=== PATIENT | female | born 1965 | race Caucasian/White ===

== ENCOUNTER → 2019-11-08 | Outpatient (CLI) | payer BC ==
[~2019-11-08] MED LIST: AGM875T PO; ALTABAX; BUTA1CAP39 PO; CEFD300C3 PO; CTLP20T PO; CTRZ10T; D-AMPHETAMINE SALT; DCS100C PO; ESTR1TAB24 PO; FLUT16SP22 NSEACH; IBP800T PO; IBUP1TAB9 PO; LVT.1T PO; MPR22T; NAPR-247 PO; ONDA8TAB13 PO; ONDN4T PO; PANT20TA2 PO; SUMA25TA3 PO; TRAM-21 PO
== END ==
LOC: CARD 08:55
PROVIDERS: ATTEND Internal Medicine Cardiovascular Disease
DX: I07.1 Rheumatic tricuspid insufficiency (principal); R00.2 Palpitations
CPT/HCPCS: 93306

== ENCOUNTER → 2022-04-14 | Outpatient (CLI) | payer BC ==
[~2022-04-14] MED LIST changes: +CATHETER FLUSH 10 ML SYR IV PRN; +HOLD METFORMIN - RECEIVED CONTRAST 20 ML VIAL IV SCH; +IOHEXOL 350 MG/ML 100 ML (OMNIPAQUE 350) VIAL IV ONE; +NS 100 ML (IVPB) BAG IV ONE
[2022-04-14 11:45] LABS: BASOPHILS # (AUTO) 0.1 10^3/uL (0.0-0.1); BASOPHILS % (AUTO) 0 % (0-10); EOSINOPHILS % (AUTO) 0 % (0-10); HEMATOCRIT 36 % (35-52); HEMOGLOBIN 11.9 g/dL (11.5-16.0); LYMPHOCYTES # (AUTO) 2.4 10^3/uL (1.0-4.0); LYMPHOCYTES % (AUTO) 15 % (12-44); MEAN CORPUSCULAR HEMOGLOBIN 29 pg (25-34); MEAN CORPUSCULAR HGB CONC 33 g/dL (32-36); MEAN CORPUSCULAR VOLUME 89 fL (80-99); MEAN PLATELET VOLUME 9.6 fL (9.0-12.2); MONOCYTES # (AUTO) 1.3 10^3/uL (0.0-1.0); MONOCYTES % (AUTO) 8 % (0-12); NEUTROPHILS # (AUTO) 12.3 10^3/uL (1.8-7.8); NEUTROPHILS % (AUTO) 77 % (42-75); PLATELET COUNT 261 10^3/uL (130-400); WHITE BLOOD COUNT 16.1 10^3/uL (4.3-11.0)
[2022-04-14 11:56] LABS: ALBUMIN 3.8 GM/DL (3.2-4.5); POTASSIUM 4.1 MMOL/L (3.6-5.0)
[2022-04-14 11:57] LABS: CALCIUM 9.3 MG/DL (8.5-10.1)
[2022-04-14 12:00] LABS: BILIRUBIN,TOTAL 0.4 MG/DL (0.1-1.0)
[2022-04-14 12:02] LABS: CREATININE SERUM 0.74 MG/DL (0.60-1.30)
--- NOTE | 2022-04-14 12:46 | Diagnostic Imaging Report ---
PROCEDURE: CT abdomen and pelvis with contrast. TECHNIQUE: Multiple contiguous axial images were obtained through the abdomen and pelvis after administration of intravenous contrast. Auto Exposure Controls were utilized during the CT exam to meet ALARA standards for radiation dose reduction. All CT scans use one or more of the following dose optimizing techniques: automated exposure control, MA and/or KvP adjustment based on patient size and exam type or iterative reconstruction. INDICATION: Left lower quadrant pain and fever. COMPARISON: No prior studies are available for comparison. FINDINGS: Lung bases are clear. Liver does show some generalized low density, consistent with hepatic steatosis. There is a simple-appearing cyst in the right lobe of the liver measuring 2.3 cm. No other liver lesions are seen. The gallbladder is unremarkable. There is no biliary ductal dilatation. Pancreas and spleen are unremarkable. No adrenal mass is detected. Kidneys are unremarkable. Aorta is nonaneurysmal. There is significant wall thickening and surrounding inflammation involving the descending colon near the junction with the sigmoid. There are diverticula present in the sigmoid colon and descending colon and features are suggestive of acute diverticulitis. No abscess formation or bowel obstruction is seen. There is no free fluid identified. The bladder is unremarkable. Uterus is surgically absent. IMPRESSION: 1. Hepatic steatosis. 2. Hepatic cyst. 3. Findings consistent with acute diverticulitis near the junction of the descending colon and sigmoid. No abscess formation or bowel obstruction is identified. Dictated by: Dictated on workstation # [id number]
[2022-04-14 13:02] LABS: BAND NEUTROPHILS 2 %; LYMPHOCYTES % (MANUAL) 12 %; MONOCYTES % (MANUAL) 6 %; NEUTROPHILS % (MANUAL) 80 %; RBC MORPH NORMAL
== END ==
LOC: RAD 11:25
PROVIDERS: ATTEND Nurse Practitioner Family
DX: K76.0 Fatty (change of) liver, not elsewhere classified (principal); K76.89 Other specified diseases of liver; R50.9 Fever, unspecified
CPT/HCPCS: 36415; 74177; 80053; 85007; 85027

== ENCOUNTER → 2022-07-07 | Outpatient (CLI) | payer BC ==
[~2022-07-07] VITALS: Ht 162 cm; Wt 75.0 kg
[~2022-07-07] MED LIST changes: -CATHETER FLUSH 10 ML SYR IV PRN; +CATHETER FLUSH 10 ML SYR IVP PRN; -HOLD METFORMIN - RECEIVED CONTRAST 20 ML VIAL IV SCH; -IOHEXOL 350 MG/ML 100 ML (OMNIPAQUE 350) VIAL IV ONE; -NS 100 ML (IVPB) BAG IV ONE
[2022-07-07 09:49] VITALS: BP 120/82
--- NOTE | 2022-07-07 11:38 | Cardiology Stress Test Report ---
Stress Test Report Date of Procedure/Referring: Date of Procedure: Jul 07, 2022 PCP No,Local Physician Admitting Physician Admitting Physician: Attending Physician: Ama Glynn Indications: HTN Baseline Heart Rate: 70 Baseline Blood Pressure: Blood Pressure Systolic: 120 Blood Pressure Diastolic: 82 Vital Signs Date Time Temp Pulse Resp B/P (MAP) Pulse Ox O2 Delivery O2 Flow Rate FiO2 07/07/22 09:49 70 120/82 (95) 98 Baseline Vital Signs Vital Signs Date Time Temp Pulse Resp B/P (MAP) Pulse Ox O2 Delivery O2 Flow Rate FiO2 07/07/22 09:49 70 120/82 (95) 98 Baseline EKG: Baseline EKG: NSR Summary: After explaining the procedure and details to the patient, she signed the consent and was brought to the stress nuclear laboratory. Patient exercised on standard Kb protocol, EKG, heart rate and blood pressure were monitored continuously, resting and stress doses of radio tracer were injected, imaging was acquired and reviewed in the short axis, horizontal long axis and vertical long axis views Patient was able to exercise for a total of 5 minutes on Kb protocol, METs 7 Maximum heart rate 151 Maximum blood pressure 189/88 Stress EKG, Minimal nondiagnostic changes Recovery EKG, Return to baseline TID: 1.1 SSS: 1 SDS: 1 EF: 88 Conclusion: 1. Good exercise tolerance for a total of 5 minutes on standard Kb protocol, 7 METS achieving 92% of maximal expected heart rate 2. Appropriate heart rate response to exercise with hypertensive response to exercise with peak blood pressure 189/88 returned to baseline during recovery 3. Nondiagnostic EKG changes with exercise return to baseline during recovery 4. Normal left ventricular size with normal contractility, ejection fraction 88% Copy Copies To 1: PAUL GONSALES MD, BASHAR J MD Jul 07, 2022 11:38
== END ==
LOC: CARD 07:50
PROVIDERS: ATTEND Physician Assistant
DX: I10 Essential (primary) hypertension (principal)
CPT/HCPCS: 78452; 93017; A9502